=== PATIENT | male | born 1955 | race Two or more races ===

== ENCOUNTER → 2016-12-27 | Outpatient (CLI) | payer OTHER ==
[~2016-12-27] MED LIST: TRAM50TA PO
[2016-12-27 09:21] LABS: BASO % 1 % (0-3); EOS % 4 % (0-3); HEMATOCRIT 42.7 % (39.0-53.0); HEMOGLOBIN 14.9 g/dL (13.0-17.5); LYMPH # 2.1 x10^3/uL (1.0-4.8); LYMPH % 30 % (24-48); MEAN CORPUSCULAR HEMOGLOBIN 30 pg (25-35); MEAN CORPUSCULAR HGB CONC 35 g/dL (31-37); MEAN CORPUSCULAR VOLUME 87 fL (79-100); MONO % 7 % (0-9); NEUT % 58 % (31-73); PLATELET COUNT 276 x10^3/uL (140-400); RED BLOOD COUNT 4.91 x10^6/uL (4.30-5.70); WHITE BLOOD COUNT 6.9 x10^3/uL (4.0-11.0)
[2016-12-27 09:26] LABS: INR 1.1 (0.8-1.1); PROTHROMBIN TIME PATIENT 13.1 SEC (11.7-14.0)
[2016-12-27 09:44] LABS: ALBUMIN 3.9 g/dL (3.4-5.0); CREATININE 0.9 mg/dL (0.7-1.3); GFR 86.4; POTASSIUM 3.9 mmol/L (3.5-5.1)
[2016-12-27 10:37] LABS: BILIRUBIN,URINE NEGATIVE (NEG); GLUCOSE,URINE NEGATIVE (NEG); NITRITE,URINE NEGATIVE (NEG); PROTEIN,URINE NEGATIVE (NEG-TRACE); UROBILINOGEN,URINE 0.2 mg/dL (0.2 mg/dL)
[2016-12-27 11:09] LABS: BACTERIA,URINE 0 /HPF (0-FEW); SQUAMOUS EPITHELIAL CELL,UR OCC /LPF; WBC,URINE OCC /HPF (0-4)
--- NOTE | 2016-12-27 13:18 | EKG ---
[facility] [address] [place] [address] Test Date: 2016-12-27 Test Time: 12:49:32 Pat Name: JUSTYN OLEARY Department: Room: Gender: M [employer]: : [id number] Requested By: CRYS KAT Order Number: [id number] Reading MD: Measurements Intervals [place] Rate: 70 P: 90 IA: 166 QRS: -43 QRSD: 98 T: 24 QT: 354 QTc: 385 Interpretive Statements SINUS RHYTHM ABNORMAL LEFT AXIS DEVIATION CONSIDER LEFT VENTRICULAR HYPERTROPHY QRS(T) CONTOUR ABNORMALITY CONSIDER ANTEROLATERAL MYOCARDIAL DAMAGE ABNORMAL ECG RI6.01 No previous ECG available for comparison
--- NOTE | 2016-12-27 13:27 | RAD ---
Chest, 2 views, 12/27/2016: History: Preop for knee surgery The heart size and pulmonary vascularity are normal. There is mild tortuosity of the thoracic aorta. No pulmonary infiltrates are seen. There is no evidence of pleural fluid. Minimal spurring is present in the spine. IMPRESSION: No acute cardiopulmonary abnormality is detected.
== END | disposition home or self-care (01) ==
LOC: SURGPAT 12:45
PROVIDERS: ATTEND Orthopaedic Surgery
DX: Z01.818 Encounter for other preprocedural examination (principal)
CPT/HCPCS: 36415; 71020; 80048; 81001; 82040; 85027; 85610; 85651; 85730; 87641; 93005

== ENCOUNTER → 2017-11-21 | Outpatient (CLI) | payer OTHER ==
[2017-11-21 10:20] LABS: ADD MAN DIFF? NO
[2017-11-21 10:30] LABS: BILIRUBIN,URINE NEGATIVE (NEG); CLARITY,URINE CLEAR; COLOR,URINE YELLOW; GLUCOSE,URINE NEGATIVE (NEG); NITRITE,URINE NEGATIVE (NEG); PH,URINE 6.5; PROTEIN,URINE NEGATIVE (NEG-TRACE); UROBILINOGEN,URINE 0.2 mg/dL (0.2 mg/dL)
[2017-11-21 10:31] LABS: BASO % 1 % (0-3); EOS # 0.2 x10^3/uL (0.0-0.7); EOS % 4 % (0-3); HEMATOCRIT 42.9 % (39.0-53.0); HEMOGLOBIN 14.9 g/dL (13.0-17.5); LYMPH # 1.6 x10^3/uL (1.0-4.8); LYMPH % 30 % (24-48); MEAN CORPUSCULAR HEMOGLOBIN 30 pg (25-35); MEAN CORPUSCULAR HGB CONC 35 g/dL (31-37); MEAN CORPUSCULAR VOLUME 87 fL (79-100); MONO # 0.3 x10^3/uL (0.0-1.1); MONO % 7 % (0-9); NEUT # 3.1 x10^3uL (1.8-7.7); NEUT % 58 % (31-73); PLATELET COUNT 310 x10^3/uL (140-400); RED BLOOD COUNT 4.95 x10^6/uL (4.30-5.70); RED CELL DISTRIBUTION WIDTH 13.8 % (11.5-14.5); WHITE BLOOD COUNT 5.3 x10^3/uL (4.0-11.0)
[2017-11-21 10:37] LABS: BACTERIA,URINE 0 /HPF (0-FEW); WBC,URINE OCC /HPF (0-4)
[2017-11-21 10:40] LABS: ALBUMIN 3.7 g/dL (3.4-5.0); ANION GAP 7 (6-14); BLOOD UREA NITROGEN 11 mg/dL (8-26); CALCIUM 8.7 mg/dL (8.5-10.1); CARBON DIOXIDE 31 mmol/L (21-32); CHLORIDE 105 mmol/L (98-107); GFR 76.2; GLUCOSE 97 mg/dL (70-99); POTASSIUM 3.9 mmol/L (3.5-5.1); SODIUM 143 mmol/L (136-145)
[2017-11-21 10:58] LABS: PARTIAL THROMBOPLASTIN TIME 29 SEC (24-38); PROTHROMBIN TIME PATIENT 12.4 SEC (11.7-14.0)
[2017-11-21 11:55] LABS: SEDIMENTATION RATE 18 (0-15)
[2017-11-22 00:15] LABS: MRSA BY PCR Negative (Negative)
== END | disposition home or self-care (01) ==
LOC: SURGPAT 09:39
DX: Z01.818 Encounter for other preprocedural examination (principal); M17.12 Unilateral primary osteoarthritis, left knee
CPT/HCPCS: 36415; 80048; 81001; 82040; 82306; 85025; 85610; 85651; 85730; 87641

== ENCOUNTER 2017-12-06 07:24 | Inpatient (IN) | payer OTHER ==
[2017-12-06] MEDS: IV RINGERS,LACTATED 1000ML 1,000 ML IV ×2 (07:00→12:05)
[~2017-12-06 07:24] MED LIST changes: +LIDOCAINE 1% PF 2 ML VIAL. ID; +MORPHINE SULFATE 4 MG/ML DISP.SYRIN. IV; +ONDANSETRON PF 4 MG/2 ML VIAL. IV; +PROCHLORPERAZINE 10 MG/2 ML VIAL. IV; -TRAM50TA PO; +fentaNYL PF VIAL 100 MCG/2 ML VIAL IV
[2017-12-06] MEDS: HYDROcodone/APAP 7.5/325MG 1 TAB TABLET PO ×3 (08:26→17:35)
[2017-12-06] MEDS ORDERED: SEVOFLURANE > 120 MINUTES. IH (08:26)
[2017-12-06] MEDS ORDERED: MIDAZOLAM HCL/PF 2 MG/2 ML VIAL. (08:27)
[2017-12-06] MEDS ORDERED: ONDANSETRON PF 4 MG/2 ML VIAL. (08:27)
[2017-12-06] MEDS ORDERED: PROPOFOL 20 ML IV ×2 (08:27→10:14)
[2017-12-06] MEDS ORDERED: fentaNYL PF VIAL 100 MCG/2 ML VIAL ×2 (08:27→10:15)
[2017-12-06] MEDS ORDERED: LIDOCAINE 2% PF Vial for OR 5 ML VIAL. (08:27)
[2017-12-06] MEDS ORDERED: DEXAMETHASONE SOD PHOS 20 MG/5 ML VIAL. (08:27)
[2017-12-06] MEDS ORDERED: PHENYLEPHRINE in 0.9% NACL PF 1 MG/10 ML SYRINGE. IV (08:27)
[2017-12-06] MEDS: MELOXICAM 7.5 MG TABLET PO ×2 (08:27→14:30)
[2017-12-06] MEDS ORDERED: ePHEDrine PF IN SALINE 50 MG/5 ML DISP.SYRIN IV (09:57)
[2017-12-06] MEDS: TRANEXAMIC ACID 1,000 MG in IV NS 50ML -- 1ST BAG INJ (10:01)
[2017-12-06] MEDS ORDERED: GLYCOPYRROLATE 1 MG/5 ML VIAL. (10:09)
[2017-12-06] MEDS: TOBRAMYCIN POWDER 1.2 GM VIAL. (10:13)
[2017-12-06] MEDS: VANCOMYCIN 1 GM VIAL. (10:13)
[2017-12-06] MEDS: MORPHINE SULFATE 5 MG, KETOROLAC 30 MG, ROPIVacaine 0.5% PF 60 ML, EPINEPHrine 0.5 MG i... INT ART (10:13)
[2017-12-06] MEDS ORDERED: ESMOLOL 100 MG/10 ML VIAL. IV (10:17)
[2017-12-06] MEDS: TRANEXAMIC ACID 1,000 MG in IV NS 50ML -- 2ND BAG INJ (11:02)
[2017-12-06] MEDS ORDERED: PROCHLORPERAZINE 10 MG/2 ML VIAL. IV (12:00)
[2017-12-06] MEDS ORDERED: METOCLOPRAMIDE HCL 10 MG/2 ML VIAL. IV (12:00)
[2017-12-06] MEDS ORDERED: ACETAMINOPHEN 325 MG TABLET. PO (12:00)
[2017-12-06] MEDS ORDERED: PROCHLORPERAZINE 5 MG TABLET. PO (12:00)
[2017-12-06] MEDS ORDERED: traMADol 50 MG TABLET PO ×2 (12:00)
[2017-12-06] MEDS ORDERED: MORPHINE SULFATE 4 MG/ML DISP.SYRIN. IV ×3 (12:00)
[2017-12-06] MEDS ORDERED: DEXTROSE 50% 25 GM / 50ML DISP.SYRIN. IV (12:00)
[2017-12-06] MEDS ORDERED: diphenhydrAMINE 50 MG/ML VIAL IV (12:00)
[2017-12-06] MEDS ORDERED: CALCIUM CARBONATE 500 MG TAB.CHEW PO (12:00)
[2017-12-06] MEDS ORDERED: MORPHINE SULFATE 10 MG/ML VIAL. IV (12:00)
[2017-12-06] MEDS ORDERED: ZOLPIDEM 5 MG TABLET. PO (12:00)
[2017-12-06] MEDS ORDERED: HYDROcodone/APAP 10/325 1 TAB TABLET PO (12:00)
[2017-12-06] MEDS ORDERED: fentaNYL PF VIAL 100 MCG/2 ML VIAL IV ×2 (12:00)
[2017-12-06] MEDS ORDERED: oxyCODONE/APAP 7.5/325 1 TAB TABLET PO (12:00)
[2017-12-06] MEDS ORDERED: oxyCODONE/APAP 5/325 1 TAB TABLET PO (12:00)
[2017-12-06] MEDS ORDERED: 0.9 % SODIUM CHLORIDE 10 ML DISP.SYRIN. IV (12:00)
[2017-12-06] MEDS: fentaNYL PF VIAL 100 MCG/2 ML VIAL IV ×2 (12:06→12:53)
[2017-12-06] MEDS: amLODIPine BESYLATE 5 MG TABLET PO (14:00)
[2017-12-06] MEDS: FERROUS SULFATE 325 MG TABLET. PO (17:33)
[2017-12-06] MEDS: MULTIVITAMIN with MINERAL TABLET. PO (17:33)
[2017-12-06] MEDS: KETOROLAC 30 MG, BUPIVACAINE MPF 0.25% 20 ML, EPINEPHrine 0.5 MG in TOTAL VOLUME SYRING... INT ART (18:31)
[2017-12-06] MEDS: ASPIRIN ENTERIC COATED 325 MG TABLET.DR. PO (21:10)
[2017-12-06] MEDS: IV DEXTROSE 5 %-0.45 % NACL 1,000 ML IV ×2 (21:13→21:17)
[2017-12-07 04:43] LABS: HEMATOCRIT 35.1 % (39.0-53.0); HEMOGLOBIN 12.2 g/dL (13.0-17.5); MEAN CORPUSCULAR HGB CONC 35 g/dL (31-37)
[2017-12-07] MEDS: HYDROcodone/APAP 7.5/325MG 1 TAB TABLET PO ×2 (05:10→21:23)
[2017-12-07] MEDS: KETOROLAC 30 MG, BUPIVACAINE MPF 0.25% 20 ML, EPINEPHrine 0.5 MG in TOTAL VOLUME SYRING... INT ART (05:48)
[2017-12-07] MEDS ORDERED: MAGNESIUM HYDROXIDE 2,400 MG/30 ML ORAL.SUSP. PO (06:00)
[2017-12-07] MEDS: SENNOSIDES/DOCUSATE 8.6/50MG TABLET. PO (08:26)
[2017-12-07] MEDS: ASPIRIN ENTERIC COATED 325 MG TABLET.DR. PO ×2 (08:26→21:13)
[2017-12-07] MEDS: MULTIVITAMIN with MINERAL TABLET. PO (08:26)
[2017-12-07] MEDS: FERROUS SULFATE 325 MG TABLET. PO ×2 (08:26→16:59)
[2017-12-07] MEDS: MELOXICAM 7.5 MG TABLET PO (08:27)
[2017-12-07] MEDS: amLODIPine BESYLATE 5 MG TABLET PO (08:31)
[2017-12-07] MEDS ORDERED: BISACODYL 10 MG SUPP.RECT. PR (16:00)
[2017-12-08 06:15] LABS: HEMATOCRIT 35.2 % (39.0-53.0); HEMOGLOBIN 12.2 g/dL (13.0-17.5); MEAN CORPUSCULAR HGB CONC 35 g/dL (31-37)
[2017-12-08] MEDS: ASPIRIN ENTERIC COATED 325 MG TABLET.DR. PO (08:14)
[2017-12-08] MEDS: MULTIVITAMIN with MINERAL TABLET. PO (08:15)
[2017-12-08] MEDS: FERROUS SULFATE 325 MG TABLET. PO (08:15)
[2017-12-08] MEDS: amLODIPine BESYLATE 5 MG TABLET PO (08:15)
[2017-12-08] MEDS: SENNOSIDES/DOCUSATE 8.6/50MG TABLET. PO (08:15)
[2017-12-08] MEDS: MELOXICAM 7.5 MG TABLET PO (08:17)
[2017-12-08] MEDS: ERGOCALCIFEROL (VITAMIN D2) 50,000 UNIT CAPSULE. PO (08:51)
[2017-12-08] MEDS: HYDROcodone/APAP 7.5/325MG 1 TAB TABLET PO ×2 (13:16→17:04)
== END 2017-12-08 17:30 | disposition home health service (06) | DRG 470 ==
LOC: OPSVCIP 07:24 → 4 SOUTHEST 13:51
PROC: 0SRD069 Replacement of Left Knee Joint with Oxidized Zirconium on Polyethylene Synthetic Substitute, Cemented, Open Approach (ICD-10-PCS; principal; 2017-12-06 09:00)
DX: M17.12 Unilateral primary osteoarthritis, left knee (principal); Z96.651 Presence of right artificial knee joint
CPT/HCPCS: 36415; 73560; 85014; 85018; 86850; 86900; 86901; 88305; 88311; 97110-GO; 97116-GP; 97150-GP; 97162-GP; 97165-GO; 97530-GP; A7015; C1713; J0171; J0690; J1100; J1885; J2250; J2270; J2370; J2405; J2704; J2795; J3010; J3260; J3370; J3490; J7030; J7120